=== PATIENT | male | born 1995 | race Hispanic/Latino ===

== ENCOUNTER 2016-06-21 11:28 | Emergency (ER) | payer SELFPAY ==
[~2016-06-21] VITALS: Ht 157.5 cm; Wt 59.0 kg
[2016-06-21 11:40] VITALS: BP 119/68
== END 2016-06-21 13:45 | disposition left against medical advice (07) ==
LOC: EME 11:28
DX: S52.202A Unspecified fracture of shaft of left ulna, initial encounter for closed fracture (principal); K08.89 Other specified disorders of teeth and supporting structures; V18.0XXA Pedal cycle driver injured in noncollision transport accident in nontraffic accident, initial encounter
CPT/HCPCS: 73110; 99281; 99282